=== PATIENT | male | born 1950 | race American Indian/Alaskan Native ===

== ENCOUNTER 2021-06-12 10:58 | Day surgery (SDC) | payer OTHER ==
[2021-06-07 13:09] LABS: Hematocrit 37.7 % (35.5-45.6); Hemoglobin 12.9 gm/dl (11.8-15.2); Mean Corpuscular HGB Conc 34 % (32-34); Mean Corpuscular Volume 78 fl (84-94); Platelet Count 210 K/mm3 (140-440); Red Blood Count 4.84 M/mm3 (3.65-5.03); Red Cell Distribution Width 15.6 % (13.2-15.2)
[2021-06-07 13:27] LABS: BUN/Creatinine Ratio 11; Blood Urea Nitrogen 11 mg/dL (9-20); Calcium 8.9 mg/dL (8.4-10.2); Hemolysis Index 9
--- NOTE | 2021-06-12 07:22 | Anesthesia Consultation ---
Anesthesia Consult and Med Hx Date of service: 06/12/21 - Airway Anesthetic Teeth Evaluation: Good, Partials ROM Head & Neck: Adequate Mental/Hyoid Distance: Adequate Mallampati Class: Class III Intubation Access Assessment: Possibly Difficult - Pre-Operative Health Status ASA Pre-Surgery Classification: ASA3 Proposed Anesthetic Plan: General - Pulmonary Hx Smoking: Yes (former smoker quit >40yrs) Hx Respiratory Symptoms: No Hx Sleep Apnea: No (NAWAF PRE SCREEN HIGH RISK) - Cardiovascular System Hx Hypertension: Yes Hx Heart Attack/AMI: No Hx Percutaneous Transluminal Coronary Angioplasty (PTCA): No Hx Cardia Arrhythmia: No - Central Nervous System CVA: No Hx Back Pain: Yes Hx Psychiatric Problems: No (PTSD) - Endocrine Hx Renal Disease: No Hx Liver Disease: No Hx Non-Insulin Dependent Diabetes: Yes (diet controlled) Hx Thyroid Disease: No - Other Systems Hx Substance Use: Yes (occasional THC) Hx Cancer: Yes (prostate ca) - Additional Comments Anesthesia Medical History Comments: No hx anesthetic complications. Takes pred nisone 5mg qDay chronically.
--- NOTE | 2021-06-12 07:24 | Anesthesia Day of Surgery ---
Anesthesia Day of Surgery - Day of Surgery Patient Examined: Yes Patient H&P Reviewed: Yes Patient is NPO: Yes
--- NOTE | 2021-06-12 09:27 | Short Stay Summary ---
Short Stay Documentation Date of service: 06/12/21 - History Principal diagnosis: left inguinal pain/hernia H&P: obtained from office - Allergies and Medications Current Medications: Allergies niacin Allergy (Verified 06/05/21 17:20) Itching felodipine Adverse Reaction (Verified 06/05/21 17:22) DENTAL PROBLEMS,GUMS RECEDING lisinopril Adverse Reaction (Verified 06/05/21 17:22) COUGH losartan Adverse Reaction (Verified 06/05/21 17:22) COUGH Home Medications Medication Instructions Recorded Confirmed Last Taken Type Aspirin [[place] Aspirin EC] 81 mg PO DAILY 06/05/21 06/05/21 Unknown History Cyanocobalamin (Vitamin B-12) 1,000 mcg PO DAILY 06/05/21 06/05/21 Unknown History [Vitamin B-12] Diclofenac 1% [Diclofenac 1% 1 dose TP QID PRN 06/05/21 06/05/21 Unknown History topical gel] Lidocaine [Lidocaine GEL] 1 dose TP BID 06/05/21 06/05/21 Unknown History Melatonin [Melatonin 5MG CAP] 10 mg PO QHS 06/05/21 06/05/21 Unknown History Prednisone [predniSONE (Reynaldo) ER 5 mg PO QDAY 06/05/21 06/05/21 Unknown History TAB] RX: Abiraterone Acetate 1,000 mg PO DAILY 06/05/21 06/05/21 Unknown History RX: Omeprazole 40 mg PO DAILY 06/05/21 06/05/21 Unknown History Relugolix [Orgovyx] 120 mg PO DAILY 06/05/21 06/05/21 Unknown History Rosuvastatin Calcium [Crestor] 20 mg PO DAILY 06/05/21 06/05/21 Unknown History Sertraline [Zoloft] 150 mg PO QDAY 06/05/21 06/05/21 Unknown History Trospium Chloride [Trospium 20 mg PO QHS 06/05/21 06/05/21 Unknown History Chloride ER] Urea [Urea 20% CREAM] 85 gm TP PRN PRN 06/05/21 06/05/21 Unknown History amLODIPine [Norvasc] 10 mg PO DAILY 06/05/21 06/05/21 Unknown History Active Medications Acetaminophen (Acetaminophen 325 Mg Tab) 650 mg PO PREOP NGHIA Stop: 06/12/21 20:00 Hydrocodone Bitart/Acetaminophen (Hydrocodone/Acetaminophen 5-325 Mg Tab) 2 each PO ONCE PRN PRN Reason: Pain, Moderate (4-6) Stop: 06/12/21 17:00 Cefazolin Sodium (Cefazolin/Sterile Water 2 Gm/20 Ml Syringe) 2 gm IV PREOP NR Stop: 06/12/21 20:00 Gabapentin (Gabapentin 100 Mg Cap) 100 mg PO PREOP NGHIA Stop: 06/12/21 20:00 Hydromorphone HCl (Hydromorphone 1 Mg/1 Ml Inj) 0.5 mg IV Q10MIN PRN PRN Reason: Pain , Severe (7-10) Stop: 06/12/21 17:00 Lactated Ringer's (Lactated Ringers) 1,000 mls @ 100 mls/hr IV DIRECT NGHIA Stop: 06/12/21 23:59 Last Admin: 06/12/21 06:30 Dose: 100 mls/hr - Brief post op/procedure progress note Date of procedure: 06/12/21 Pre-op diagnosis: left inguinal pain/hernia Post-op diagnosis: other (intraabdominal foreign body) Procedure: diagnostic laparoscopy Anesthesia: GETA, local Findings: Penile implant reservoir and artificial sphincter identified in the intraperitoneal position/midline pelvis. No obvious inguinal hernia bilaterally. Surgeon: DEONDRE BROWN (Assist: DARY Manning) Estimated blood loss: minimal Pathology: none Condition: stable - Hospital course Hospital course: Pt observed in PACu and discharged to home in stable condition - Disposition Condition at discharge: Good Disposition: 01 HOME / SELF CARE / HOMELESS Short Stay Discharge Plan Activity: no restrictions Diet: regular Wound: open to air Additional Instructions: SEE PRINTED INSTRUCTIONS Follow up with: [facility] [Primary Care Provider] - 7 Days DEONDRE BROWN DO [Staff Physician] - 14 Days Prescriptions: RX: traMADoL [Ultram 50 MG tab] 25 mg PO Q6HR PRN #5 tablet PRN Reason: Pain
--- NOTE | 2021-06-12 10:24 | Post Anesthesia Evaluation ---
- Post Anesthesia Evaluation Patient Participated: Yes Airway Patent: Yes Stable Respiratory Function: Yes Nausea/Vomiting: No Temp > 96.8F: Yes Pain Manageable: Yes Adequeate Hydration: Yes Anesthesia Complications: No
[~2021-06-12 10:58] MED LIST: ACETAMINOPHEN 325 MG TAB PO SCH; BUPIVACAINE/PF (0.5%) 5 MG/1 ML 30 ML VIAL INFILTRATI ONE; GABAPENTIN 100 MG CAP PO SCH; GLYCOPYRROLATE 0.4 MG/2 ML INJ ONE; HYDROcodone/ACETAMINOPHEN 5-325 MG TAB PO PRN; HYDROmorphone 1 MG/1 ML INJ IV PRN; LACTATED RINGERS 1,000 ML IV SCH; LACTATED RINGERS 1000 ML IV SOLN IV ONE; LIDOCAINE (1%) 10 MG/1 ML VIAL 20 ML MDV INFILTRATI ONE; LIDOCAINE (1%) 10 MG/1 ML VIAL 20 ML MDV ONE; LIDOCAINE MPF (2%) 20 MG/1 ML VIAL 5 ML ONE; NEOSTIGMINE 10MG/10 ML INJ MDV ONE; ONDANSETRON 4 MG/2 ML INJ ONE; PHENYLEPHRINE/NS 1,000 MCG/10 ML SYRINGE (OR USE) IV ONE; ROCURONIUM 50 MG/5 ML INJ IV ONE; WATER FOR IRRIG STERILE 1,500 ML BOTTLE IR ONE; ceFAZolin/STERILE WATER 2 GM/20 ML SYRINGE IV NR; ePHEDrine SULFATE 50 MG/1 ML INJ ONE; fentaNYL 100 MCG/2 ML INJ ONE; propofoL 200 MG/20 ML VIAL IV ONE
[2021-06-12 11:14] VITALS: BP 129/93
--- NOTE | 2021-06-12 12:46 | Operative Report ---
Operative Report Operative Report: Date of procedure: 06/12/21 Pre-op diagnosis: left inguinal pain/hernia Post-op diagnosis: other (intraabdominal foreign body) Procedure: diagnostic laparoscopy Anesthesia: GETA, local Findings: Penile implant reservoir and artificial sphincter identified in the intraperitoneal position/midline pelvis. No obvious inguinal hernia bilaterally. Surgeon: DEONDRE BROWN (Assist: DARY Manning) Estimated blood loss: minimal Pathology: none Condition: stable Hospital course: Pt observed in PACu and discharged to home in stable condition Condition at discharge: Good Disposition: 01 HOME / SELF CARE / HOMELESS HPI and indication: Patient is a 70-year-old male who was referred to the surgery clinic by the [facility] for evaluation of a left inguinal hernia. The patient states he has been having pain in the left groin with swelling. He was seen by his urologist who diagnosed him with a left inguinal hernia. The patient also has a history of a penile prosthesis with a artificial sphincter. The patient initially felt that he was feeling the tubing however his urologist felt the patient needed to be seen by general surgery for hernia repair. The patient states that he notices a bulging in the left groin from time to time which he is able to " reduce" on his own. On physical exam the patient was found to have point tenderness in the left groin/deep inguinal ring but no obvious hernia was palpated. Surgical options were discussed with the patient including robotic assisted laparoscopy with left inguinal hernia repair. Patient was agreeable and consent was obtained. Procedure in detail: The patient was identified in the preoperative area, taken back to the operating room and placed on the operating table in supine position. After anesthesia was induced a Jeffries catheter was sterilely placed by the circulating nurse. The abdominal hairs were clipped and the abdomen was prepped and draped in usual sterile fashion a timeout was performed. Local anesthetic was infiltrated into skin at the intended incision sites. A left upper quadrant alexandra incision was made through which a Veress needle was inserted. The Veress needle position was confirmed using the saline drop test and the abdomen insufflated to 15 mmHg. 5 mm supraumbilical Optiview trocar was then placed under direct visualization. The abdomen was inspected and there was no underlying injury to the abdominal structures. The Veress needle was identified and removed. An additional left midabdominal trocar was placed under direct visualization. The patient was placed in Trendelenburg and the pelvis examined. 2 foreign objects were seen in the abdomen, midline pelvs. These appeared to be the reservoir for the penile prosthesis and the artificial sphincter. There was no inflammation or adhesions. Upon examination of bilateral inguinal regions, no obvious hernia was seen. At this point, as no hernias were identified, it was decided to complete the procedure as a diagnostic laparoscopy. The trocars were removed and the abdomen was desufflated. The skin incisions were once again infiltrated with local anesthetic. Skin was approximated using 4-0 Monocryl subcuticular stitches and skin glue. At the end of the case all sponge, instrument, sharp counts were correct x2. The patient's Jeffries was removed and he was awoken from anesthesia, extubated and taken to PACU in stable condition peer The patient will be referred back to his urologist for evaluation and further management of intra-abdominal positioning of penile prosthesis reservoir. This was discussed with the patient and his .
== END 2021-06-12 11:50 | disposition home or self-care (01) ==
LOC: OR 10:58
PROVIDERS: ATTEND Surgery
DX: K40.90 Unilateral inguinal hernia, without obstruction or gangrene, not specified as recurrent (principal); G43.909 Migraine, unspecified, not intractable, without status migrainosus; I10 Essential (primary) hypertension; E78.00 Pure hypercholesterolemia, unspecified; E11.9 Type 2 diabetes mellitus without complications; F32.9 Major depressive disorder, single episode, unspecified; Z20.822 Contact with and (suspected) exposure to COVID-19; Z88.8 Allergy status to other drugs, medicaments and biological substances; Z79.899 Other long term (current) drug therapy; Z87.891 Personal history of nicotine dependence; Z98.49 Cataract extraction status, unspecified eye; Z98.890 Other specified postprocedural states; Z85.46 Personal history of malignant neoplasm of prostate; Z86.2 Personal history of diseases of the blood and blood-forming organs and certain disorders involving the immune mechanism
CPT/HCPCS: 36415; 49320; 80048; 82962; 85027; J0690; J1815; J2370; J2405; J2704; J2710; J3010; J3490; J7120; U0003

== ENCOUNTER 2021-07-23 14:15 | Outpatient (CLI) | payer OTHER ==
--- NOTE | 2021-07-23 16:31 | Cat Scan Report ---
CT ABDOMEN AND PELVIS WITHOUT CONTRAST INDICATION / CLINICAL INFORMATION: K40.90. TECHNIQUE: Axial CT images were obtained through the abdomen and pelvis without IV contrast. All CT scans at this location are performed using CT dose reduction for ALARA by means of automated exposure control. COMPARISON: None available. FINDINGS: LOWER CHEST: No significant abnormality. LIVER: No acute abnormality. GALLBLADDER: No significant abnormality. BILE DUCTS: No significant abnormality. PANCREAS: No significant abnormality. SPLEEN: No significant abnormality. ADRENALS: No significant abnormality. RIGHT KIDNEY / URETER: No significant abnormality. LEFT KIDNEY / URETER: No significant abnormality. STOMACH / SMALL BOWEL: No significant abnormality. COLON: No significant abnormality. APPENDIX: No significant abnormality. PERITONEUM: No free fluid. No free air. No fluid collection. LYMPH NODES: No significant adenopathy. AORTA / ARTERIES: Mild atherosclerotic calcification without acute abnormality. IVC / VEINS: No significant abnormality. URINARY BLADDER: No significant abnormality. REPRODUCTIVE ORGANS: There are penile implants with reservoirs in the lower pelvis. ADDITIONAL FINDINGS: No hernias are identified. SKELETAL SYSTEM: No acute abnormality. IMPRESSION: 1. There is no obstruction, inflammation, or free air. There are no abnormal fluid collections. No he rnias are identified. Signer Name: Kyler Betancourt MD Signed: 07/23/2021 4:27 PM Workstation Name: [id number]
== END 2021-07-23 14:16 | disposition home or self-care (01) ==
LOC: CT 14:15
PROVIDERS: ATTEND Surgery
DX: K40.90 Unilateral inguinal hernia, without obstruction or gangrene, not specified as recurrent (principal); I70.0 Atherosclerosis of aorta
CPT/HCPCS: 74176